=== PATIENT | female | born 2000 | race Caucasian/White ===

== ENCOUNTER 2019-05-21 16:20 | Emergency (ER) | payer SELFPAY ==
[~2019-05-21] VITALS: Ht 162.6 cm; Wt 62.0 kg
--- NOTE | 2019-05-21 17:06 | NUR ---
PT UPRIGHT ON GURNEY AWAKE & CALM, RESPONDS APPROP TO STAFF, NAD, COMFORT MEASURES PROVIDED, FAMILY AT BS, CALL LIGHT WITHIN REACH.
[2019-05-21] MEDS ORDERED: KETOROLAC 60 MG/2 ML ONE (17:18)
[2019-05-21] MEDS ORDERED: KETOROLAC 30 MG/1 ML IM ONE (17:30)
[2019-05-21 18:03] VITALS: BP 95/77
--- NOTE | 2019-05-21 18:03 | NUR ---
Patient given discharge instructions and they have confirmed that they understand the instructions. Patient ambulatory with steady gait.
== END 2019-05-21 18:09 | disposition home or self-care (01) ==
LOC: ED 17:55
DX: M94.0 Chondrocostal junction syndrome [Tietze] (principal); R09.1 Pleurisy; M54.9 Dorsalgia, unspecified; F17.210 Nicotine dependence, cigarettes, uncomplicated
CPT/HCPCS: 71046; 93005; 96372; 99283; 99406; J1885